=== PATIENT | female | born 2000 | race Caucasian/White ===

== ENCOUNTER 2024-04-10 00:09 | Emergency (ER) | payer OTHER ==
[~2024-04-10] VITALS: Ht 170.2 cm; Wt 106.6 kg
[2024-04-10 00:25] VITALS: PULSE 90; RESP 20; TEMP 98.3; O2SAT 100
[2024-04-10] MEDS ORDERED: CYCLOBENZAPRINE5 MG PO (00:42)
[2024-04-10] MEDS ORDERED: NAPROSYN500 MG PO (00:42)
== END 2024-04-10 00:47 | disposition home or self-care (01) ==
LOC: ER 00:13
DX: S50.811A Abrasion of right forearm, initial encounter (principal); S70.12XA Contusion of left thigh, initial encounter; V43.52XA Car driver injured in collision with other type car in traffic accident, initial encounter; Y92.488 Other paved roadways as the place of occurrence of the external cause
CPT/HCPCS: 99282